=== PATIENT | female | born 1955 | race Caucasian/White ===

== ENCOUNTER 2018-02-02 22:44 | Emergency (ER) | payer MEDICAID ==
[~2018-02-02] VITALS: Ht 147.3 cm; Wt 64.0 kg
[2018-02-02 22:44] VITALS: BP 146/60
[2018-02-02] MEDS ORDERED: ALBUTEROL FS 2.5 MG/0.5 ML VIAL.NEB NEB ONE (23:00)
[2018-02-02] MEDS ORDERED: ALBUTEROL FS 2.5 MG/3 ML VIAL.NEB ONE (23:04)
== END 2018-02-02 23:58 | disposition home or self-care (01) ==
LOC: ER 22:45
DX: J06.9 Acute upper respiratory infection, unspecified (principal); I10 Essential (primary) hypertension
CPT/HCPCS: 71045; 94640; 99283; A4606; Z7610